=== PATIENT | male | born 1960 | race Caucasian/White ===

== ENCOUNTER 2019-01-23 19:36 | Emergency (ER) | payer OTHER ==
[~2019-01-23] VITALS: Ht 175.3 cm; Wt 88.5 kg
[2019-01-23] MEDS ORDERED: KETOROLAC 30 MG/ML VIAL IVP STA (20:05)
[2019-01-23] MEDS ORDERED: LACTATED RINGERS 1,000 ML IV ONE ×4 (20:05→22:16)
--- OUTSIDE RECORDS SUMMARY | 2019-01-23 20:13 | XMS REPORT | Continuity of Care Document ---
Author Author [facility] Address Unknown Phone Unavailable Allergies There is no data. Medications There is no data. Problems Date Dx Coded Attending Type Code Diagnosis Diagnosed By 10/15/2018 PACO WYATT.Felipa Diverticulitis of large intestine without perforation or abscess without bleeding 10/15/2018 PACO WYATT.Felipa Diverticulitis of large intestine without perforation or abscess without bleeding 10/15/2018 PACO WYATT.Felipa Diverticulitis of large intestine without perforation or abscess without bleeding 10/15/2018 PACO WYATT7.32 Diverticulitis of large intestine without perforation or abscess without bleeding 10/15/2018 PACO WYATT7.Felipa Diverticulitis of large intestine without perforation or abscess without bleeding 10/15/2018 PACO WYATT7.32 Diverticulitis of large intestine without perforation or abscess without bleeding 10/15/2018 PACO WYATT7.32 Diverticulitis of large intestine without perforation or abscess without bleeding 10/16/2018 PACO WYATT7.32 Diverticulitis of large intestine without perforation or abscess without bleeding 10/16/2018 PACO WYATT7.32 Diverticulitis of large intestine without perforation or abscess without bleeding 10/17/2018 PACO WYATT.Felipa Diverticulitis of large intestine without perforation or abscess without bleeding 10/17/2018 PACO WYATT7.Felipa Diverticulitis of large intestine without perforation or abscess without bleeding 10/17/2018 PACO WYATT7.Felipa Diverticulitis of large intestine without perforation or abscess without bleeding 11/04/2018 PACO WYATT 494 Post Op Exam 11/04/2018 PACO WYATT.Felipa Diverticulitis of large intestine without perforation or abscess without bleeding 12/03/2018 NAVEEN GRIFFITH G89.29 Other chronic pain 12/03/2018 NAVEEN GRIFFITH M25.512 Pain in left shoulder 12/03/2018 NAVEEN GRIFFITH G89.29 Other chronic pain 12/03/2018 REBECCANAVEEN CHÁVEZ M25.512 Pain in left shoulder 12/03/2018 NAVEEN GRIFFITH M75.02 Adhesive capsulitis of left shoulder 12/03/2018 G89.29 Other chronic pain 12/03/2018 M25.512 Pain in left shoulder Procedures Code Description Performed By Performed On IVT3 INSERT PERIPHERAL IV 10/15/2018 YTS043 NURSING COMMUNICATION 10/15/[address] SEQUENTIAL COMPRESSION DEVICE 10/15/2018 DDC512 VERIFY INFORMED CONSENT 10/15/[address] TOMMY HOSE 10/15/2018 KMS129 HEIGHT AND WEIGHT 10/15/2018 PHQ333 VITAL SIGNS 10/15/2018 [id number] TISSUE PATHOLOGY OR BIOPSY 10/15/2018 COB069 NOTIFY PHYSICIAN 10/15/2018 TGR281 NURSING COMMUNICATION 10/15/2018 KVI706 MEASURE BLOOD PRESSURE 10/15/2018 WOR282 VITAL SIGNS 10/15/2018 ZZT101 CONTINUOUS PULSE OXIMETRY 10/15/2018 AVI076 MAINTAIN SEQUENTIAL COMPRESSION DEVICE 10/15/2018 ADT30 OR ADMIT TO INPATIENT 10/15/2018 COD2 FULL CODE 10/15/2018 DIET24 DIET 10/15/2018 IVT11 SALINE LOCK IV 10/15/2018 [id number] ADVANCE DIET TOLERATED NURSING: PLACE NEW DIET ORDER WHEN PATIENT IS READY TO ADVANCE DIET 10/15/2018 YYC094 UP WITH ASSISTANCE 10/15/2018 ELE843 NOTIFY PHYSICIAN 10/15/2018 XPJ935 INCENTIVE SPIROMETRY NURSING 10/15/2018 QKN443 TURN COUGH DEEP BREATHE 10/15/2018 VNI849 MEJIA CATHETER - DISCONTINUE 10/15/2018 NMG554 VITAL SIGNS 10/15/[address] SEQUENTIAL COMPRESSION DEVICE 10/15/2018 NRX223 MAINTAIN SEQUENTIAL COMPRESSION DEVICE 10/15/2018 AZK5901 NURSING COMMUNICATION 10/15/2018 LBG761 POST-OP ILEUS PREVENTION 10/15/2018 MZE9039 BASIC METABOLIC PANEL 10/15/2018 XAD5707 COMPLETE BLOOD COUNT 10/15/2018 MUI2020 MAGNESIUM 10/15/2018 JZN8882 PHOSPHORUS 10/15/2018 FPD982 NURSING COMMUNICATION 10/15/2018 NUR9 AMBULATE IN TIERNEY 10/16/2018 [id number] BASIC METABOLIC PANEL 10/16/2018 LFP7059 COMPLETE BLOOD COUNT 10/16/2018 NPI8161 MAGNESIUM 10/16/2018 CXI5626 PHOSPHORUS 10/16/2018 DIET24 DIET 10/17/2018 DIET24 DIET 10/17/2018 RBN903 WEIGHT RESTRICTIONS 10/17/2018 VQP219 WOUND CARE ROUTINE (SPECIFY ) 10/17/2018 BOF525 PATIENT MAY SHOWER 10/17/2018 LKZ313 DISCHARGE FOLLOW UP 10/17/2018 ADT8 DISCHARGE PATIENT 10/17/2018 [id number] XR SHOULDER MIN 2 VIEWS LEFT 12/03/2018 REF87 AMB REFERRAL TO PHYSICAL THERAPY 12/03/2018 ZTI585 LARGE JOINT INJECTION/ ARTHROCENTESIS 12/03/2018 Results Test Result Range COMPLETE BLOOD COUNT - 10/16/18 03:45 WBC 11.58 4.00-11.00 Hematocrit 40 40-50 Hemoglobin 13.7 13.0-17.0 MCH 31 27-34 MCHC 34 32-36 MCV 90 80-99 MPV 9.7 9.4-12.3 Platelet Count 258 140-400 RBC 4.46 4.31-5.84 RDW 14.2 9.0-14.5 BASIC METABOLIC PANEL - 10/16/18 03:45 Blood Urea Nitrogen 12 7-26 Chloride 104 96-112 Carbon Dioxide 28 20-32 Creatinine 1.0 0.6-1.3 Glucose 108 70-100 Potassium 4.2 3.5-5.3 Sodium 139 133-147 Calcium 8.6 8.4-10.5 Anion Gap 7 TX 5-17 GFR MALE AA 93 TX 60-200 GFR MALE NON-AA 77 TX 60-200 PHOSPHORUS - 10/16/18 03:45 Phosphorus 3.9 2.5-4.5 MAGNESIUM - 10/16/18 03:45 Magnesium 2.1 1.4-2.7 Encounters ACCT No. Visit Date/Time Discharge Status Pt. Type Provider Facility Loc./Unit Complaint [id number] 12/03/2018 15:08:11 12/03/2018 23:59:59 CLS Outpatient BS XR Pain in left shoulder [id number] 12/03/2018 14:54:09 12/03/2018 23:59:59 CLS Outpatient NAVEEN GRIFFITH BLSPG RH ORT Pain [id number] 11/04/2018 14:16:30 11/04/2018 23:59:59 CLS Outpatient PACO WYATT BS GS Post Op Exam [id number] 10/15/2018 10:05:51 10/17/2018 13:22:33 DIS Inpatient PACO WYATT [facility] 5S1 diverticulitis [id number] 10/15/2018 10:49:15 Document Registration
[2019-01-23] MEDS ORDERED: ONDANSETRON 4 MG/2 ML (SDV) Z0FRAN IVP ONE ×2 (20:15→21:30)
[2019-01-23 20:17] LABS: BASOPHILS % (AUTO) 0 % (0-10); EOSINOPHILS # (AUTO) 0.1 10^3/uL (0.0-0.3); EOSINOPHILS % (AUTO) 1 % (0-10); HEMATOCRIT 44 % (40-54); HEMOGLOBIN 14.8 G/DL (13.3-17.7); LYMPHOCYTES % (AUTO) 9 % (12-44); MEAN CORPUSCULAR HEMOGLOBIN 31 PG (25-34); MEAN CORPUSCULAR HGB CONC 34 G/DL (32-36); MEAN CORPUSCULAR VOLUME 91 FL (80-99); MEAN PLATELET VOLUME 9.5 FL (7.4-10.4); MONOCYTES # (AUTO) 0.6 X 10^3 (0.0-1.0); MONOCYTES % (AUTO) 6 % (0-12); NEUTROPHILS # (AUTO) 9.4 X 10^3 (1.8-7.8); NEUTROPHILS % (AUTO) 85 % (42-75); PLATELET COUNT 244 10^3/uL (130-400); RED CELL DISTRIBUTION WIDTH 14.4 % (10.0-14.5)
[2019-01-23 20:35] LABS: ALANINE AMINOTRANSFERASE 19 U/L (0-55); ALBUMIN 4.2 GM/DL (3.2-4.5); ALKALINE PHOSPHATASE 64 U/L (40-136); AMYLASE 88 U/L (25-125); BUN/CREATININE RATIO 12; CALCIUM 9.3 MG/DL (8.5-10.1); CARBON DIOXIDE 20 MMOL/L (21-32); CHLORIDE 109 MMOL/L (98-107); GFR ESTIMATED > 60; GLUCOSE 106 MG/DL (70-105); LIPASE 15 U/L (8-78); POTASSIUM 3.7 MMOL/L (3.6-5.0); SODIUM 142 MMOL/L (135-145); TOTAL PROTEIN 7.1 GM/DL (6.4-8.2)
--- NOTE | 2019-01-23 20:38 | Diagnostic Imaging Report ---
INDICATION: Right flank pain The upright chest shows no abnormality. Supine and upright views of the abdomen shows normal bowel gas pattern. There is no free intraperitoneal air. No mass or calculus is evident. There is no bony abnormality. IMPRESSION: No abnormality is seen. Dictated by: Dictated on workstation # [id number]
--- NOTE | 2019-01-23 20:46 | Diagnostic Imaging Report ---
PROCEDURE: CT urinary tract, rule out kidney stone. TECHNIQUE: Multiple contiguous axial images were obtained through the abdomen and pelvis without the use of intravenous contrast. Auto Exposure Controls were utilized during the CT exam to meet ALARA standards for radiation dose reduction. INDICATION: Right flank pain FINDINGS: The liver, gallbladder and bile ducts are normal. The spleen, pancreas and adrenals are normal. There is a 6.3 cm cyst in the superior pole of the right kidney. There is mild pelvocaliectasis present on the right. Right ureter is dilated down into the pelvis where I believe there are punctate calcifications seen in the distal ureter just proximal to the ureterovesical junction. This is only faintly visualized. The left kidney and ureter are normal. No intrinsic abnormality of the bladder is seen. There is no acute bowel abnormality. There is no free intraperitoneal air or fluid. IMPRESSION: There is mild pelvocaliectasis of the right kidney and mild prominence of the right ureter down into the pelvis where there is probably a punctate calcification present. No other acute abnormality is evident. Dictated by: Dictated on workstation # [id number]
[2019-01-23 20:59] LABS: BILIRUBIN,URINE NEGATIVE (NEGATIVE); CLARITY,URINE CLEAR; COLOR,URINE YELLOW; GLUCOSE, URINE (UA) NEGATIVE (NEGATIVE); KETONES,URINE NEGATIVE (NEGATIVE); LEUKOCYTE ESTERASE ,URINE NEGATIVE (NEGATIVE); NITRITE,URINE NEGATIVE (NEGATIVE); PH,URINE 5 (5-9); PROTEIN,URINE 1+ (NEGATIVE); UROBILINOGEN,URINE NORMAL (NORMAL)
[2019-01-23 21:11] LABS: BACTERIA,URINE TRACE /HPF; HYALINE CASTS, URINE RARE /LPF; SQUAMOUS EPITHELIAL CELL,UR RARE /HPF
[2019-01-23] MEDS ORDERED: morphine INJ 10 MG/ML 1ML (SYR OR VIAL) IVP STA (21:17)
[2019-01-23] MEDS ORDERED: ALFUZOSIN HCL 10 MG TAB (UROXATRAL) PO SCH (21:30)
--- NOTE | 2019-01-23 21:40 | NUR ---
THIS RN IN TO ADMINISTER MEDICATIONS FOR PAIN ET NAUSEA. PT REPORTED HE WANTED TO WAIT AT THIS TIME HIS PAIN WAS "TOLERABLE". FAMILY AT BEDSIDE.
--- NOTE | 2019-01-23 21:42 | ED Abdominal Pain ---
General Chief Complaint: Abdominal/GI Problems Stated Complaint: ABD PAIN,BACK PAIN,VOMITING Nursing Triage Note: PT TO ED 9 PER AMB W/ SISTER FOR C/O RT FLANK PAIN RADIATING TO RLQ. PT REPORTS ONSET THIS AM. ALSO C/O N/V W/ ONSET. PT DENIES ANY MEDICAL HX TO THIS RN AT THIS TIME. Sepsis Screen: No Definite Risk Source of Information: Patient History of Present Illness Date Seen by Provider: Jan 23, 2019 Time Seen by Provider: 20:00 Initial Comments PT ARRIVES VIA POV PT C/O RLQ AND RIGHT FLANK PAIN SINCE THIS AM PAIN COMES AND GOES, AND IS NOT BAD NOW, BUT IS SEVERE AT TIMES C/O NAUSEA AND VOMITING WITH PAIN NOTHING WORSENS OR IMPROVES PAIN NO PROBLEMS URINATING NO DIARRHEA OR CONSTIPATION NO FEVER NO HISTORY OF SIMILAR HAS NOT TAKEN ANYTHING FOR PAIN AT ANY TIME PT HAD COLON RESECTION > 1 MONTH AGO FOR DIVERTICULITIS PT IS HERE VISITING FROM [facility] THIS --SON IS PLAYING BASEBALL HERE THIS . PCP IN [facility] Allergies and Home Medications Allergies Coded Allergies: No Known Drug Allergies (Unverified , 01/23/19) Home Medications Ciprofloxacin HCl 500 Mg Tablet, 500 MG PO BID Prescribed by: DEEPTHI RUBY on 01/23/192149 Hydrocodone/Ibuprofen 1 Each Tablet, 1-2 EACH PO Q4H Prescribed by: DEEPTHI RUBY on 01/23/192149 Ondansetron 4 Mg Tab.rapdis, 4 MG PO Q4H Prescribed by: DEEPTHI RUBY on 01/23/192149 Tamsulosin HCl 0.4 Mg Cap, 0.4 MG PO DAILY Prescribed by: DEEPTHI RUBY on 01/23/192149 Patient Home Medication List Home Medication List Reviewed: Yes Review of Systems Review of Systems Constitutional: no symptoms reported; No chills, No diaphoresis, No dizziness, No fever Respiratory: No Symptoms Reported Cardiovascular: No Symptoms Reported Gastrointestinal: See HPI, Abdominal Pain, Nausea, Vomiting Genitourinary: Denies Burning, Denies Frequency; Flank Pain; Denies Hematuria, Denies Pain, Denies Urgency Musculoskeletal: see HPI, back pain Skin: no symptoms reported Psychiatric/Neurological: No Symptoms Reported Endocrine: No Symptoms Reported Hematologic/Lymphatic: No Symptoms Reported Past Samwsmw-Sijnby-Qefdda Hx Patient Social History Alcohol Use: Denies Use Recreational Drug Use: No Smoking Status: Never a Smoker Recent Foreign Travel: No Contact w/Someone Who Travel: No Recent Infectious Disease Expo: No Recent Hopitalizations: No Physical Abuse: No Sexual Abuse: No Mistreated: No Fear: No Past Medical History Surgeries: Yes (COLON RESECTION 2019 FOR DIVERTICULITIS) Abdominal, Bowel Surgery Respiratory: No Cardiac: Yes (NOT TAKING MEDICATIONS FOR HTN) Hypertension Neurological: No Genitourinary: No Gastrointestinal: Yes (COLON RESECTION 2019 FOR DIVERTICULITIS) Diverticulosis Musculoskeletal: No Endocrine: No HEENT: No Cancer: No Psychosocial: No Integumentary: No Blood Disorders: No Physical Exam Vital Signs Vital Signs - First Documented 01/23/19 19:59 Temp 97.2 Pulse 79 Resp 18 B/P (MAP) 135/87 (103) Pulse Ox 95 O2 Delivery Room Air Capillary Refill : Less Than 3 Seconds Height/Weight/BMI Height: 5'9.00" Weight: 195lbs. oz. 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, no motor/sensory deficits, alert, normal mood/affect, oriented x 3 Skin: normal color, warm/dry; No rash Progress/Results/Core Measures Results/Orders Lab Results Laboratory Tests Test 01/23/19 20:10 01/23/19 20:53 Range/Units White Blood Count 11.0 4.3-11.0 10^3/uL Red Blood Count 4.82 4.35-5.85 10^6/uL Hemoglobin 14.8 13.3-17.7 G/DL Hematocrit 44 40-54 % Mean Corpuscular Volume 91 80-99 FL Mean Corpuscular Hemoglobin 31 25-34 PG Mean Corpuscular Hemoglobin Concent 34 32-36 G/DL Red Cell Distribution Width 14.4 10.0-14.5 % Platelet Count 244 130-400 10^3/uL Mean Platelet Volume 9.5 7.4-10.4 FL Neutrophils (%) (Auto) 85 H 42-75 % Lymphocytes (%) (Auto) 9 L 12-44 % Monocytes (%) (Auto) 6 0-12 % Eosinophils (%) (Auto) 1 0-10 % Basophils (%) (Auto) 0 0-10 % Neutrophils # (Auto) 9.4 H 1.8-7.8 X 10^3 Lymphocytes # (Auto) 1.0 1.0-4.0 X 10^3 Monocytes # (Auto) 0.6 0.0-1.0 X 10^3 Eosinophils # (Auto) 0.1 0.0-0.3 10^3/uL Basophils # (Auto) 0.0 0.0-0.1 10^3/uL Sodium Level 142 135-145 MMOL/L Potassium Level 3.7 3.6-5.0 MMOL/L Chloride Level 109 H 98-107 MMOL/L Carbon Dioxide Level 20 L 21-32 MMOL/L Anion Gap 13 5-14 MMOL/L Blood Urea Nitrogen 14 7-18 MG/DL Creatinine 1.20 0.60-1.30 MG/DL Estimat Glomerular Filtration Rate > 60 BUN/Creatinine Ratio 12 Glucose Level 106 H 70-105 MG/DL Calcium Level 9.3 8.5-10.1 MG/DL Corrected Calcium 9.1 8.5-10.1 MG/DL Total Bilirubin 1.0 0.1-1.0 MG/DL Aspartate Amino Transf (AST/SGOT) 17 5-34 U/L Alanine Aminotransferase (ALT/SGPT) 19 0-55 U/L Alkaline Phosphatase 64 40-136 U/L Total Protein 7.1 6.4-8.2 GM/DL Albumin 4.2 3.2-4.5 GM/DL Amylase Level 88 25-125 U/L Lipase 15 8-78 U/L Urine Color YELLOW Urine Clarity CLEAR Urine pH 5 5-9 Urine Specific Dora 1.020 1.016-1.022 Urine Protein 1+ H NEGATIVE Urine Glucose (UA) NEGATIVE NEGATIVE Urine Ketones NEGATIVE NEGATIVE Urine Nitrite NEGATIVE NEGATIVE Urine Bilirubin NEGATIVE NEGATIVE Urine Urobilinogen NORMAL NORMAL MG/DL Urine Leukocyte Esterase NEGATIVE NEGATIVE Urine RBC (Auto) 5+ H NEGATIVE Urine RBC 10-25 H /HPF Urine WBC NONE /HPF Urine Squamous Epithelial Cells RARE /HPF Urine Crystals NONE /LPF Urine Bacteria TRACE /HPF Urine Casts PRESENT /LPF Urine Hyaline Casts RARE /LPF Urine Mucus MODERATE H /LPF Urine Culture Indicated NO My Orders Orders - DEEPTHI RUBY DO Ct Abd/Pelvis Wo(Kidney Stone) (01/23/19 20:02) Amylase (01/23/19 20:02) Cbc With Automated Diff (01/23/19 20:02) Comprehensive Metabolic Panel (01/23/19 20:02) Lipase (01/23/19 20:02) Urinalysis (01/23/19 20:02) Acute Abd Series (01/23/19 20:02) Saline Lock/Iv-Start (01/23/19 20:05) Lactated Ringers (Lr 1000 Ml Iv Solution (01/23/19 20:05) Ondansetron Injection (Zofran Injectio (01/23/19 20:15) Ketorolac Injection (Toradol Injection) (01/23/19 20:05) Ondansetron Injection (Zofran Injectio (01/23/19 21:30) Morphine Injection (Morphine Injection (01/23/19 21:17) Alfuzosin (Not Stocked) (Uroxatral (Not (01/23/19 21:30) Saline Lock/Iv-Start (01/23/19 21:50) Lactated Ringers (Lr 1000 Ml Iv Solution (01/23/19 21:50) Lactated Ringers (Lr 1000 Ml Iv Solution (01/23/19 22:13) Saline Lock/Iv-Start (01/23/19 22:16) Lactated Ringers (Lr 1000 Ml Iv Solution (01/23/19 22:16) Rx-Hydrocodone/Apap 5-325 Mg (Rx-Vicodin (01/23/19 22:30) Rx-Ondansetron Po (Rx-Zofran Po) (01/23/19 22:17) Rx-Levofloxacin (Rx-Levaquin) (01/23/19 22:17) Medications Given in ED Current Medications Medications Dose Ordered Sig/Luis Route Start Time Stop Time Status Last Admin Dose Admin Lactated Ringer's 1,000 ml @ 0 mls/hr Q0M ONCE IV 01/23/19 20:05 01/23/19 20:08 DC 01/23/19 20:16 1,000 MLS/HR Lactated Ringer's 1,000 ml @ 0 mls/hr Q0M ONCE IV 01/23/19 21:50 01/23/19 22:16 DC 01/23/19 22:17 1,000 MLS/HR Ondansetron HCl 4 mg ONCE ONCE IVP 01/23/19 20:15 01/23/19 20:16 DC 01/23/19 20:16 4 MG Vital Signs/I&O 01/23/19 19:59 Temp 97.2 Pulse 79 Resp 18 B/P (MAP) 135/87 (103) Pulse Ox 95 O2 Delivery Room Air Blood Pressure Mean: 103 Progress Progress Note : Progress Note PAIN AND NAUSEA IMPROVED WITH MEDICATIONS Diagnostic Imaging Comments KUB--NO ACUTE PROCESS CT ABDOMEN/PELVIS--MILD PROMINENCE OF RIGHT URETER DOWN TO PELVIS WITH PROBABLE PUNCTATE CALCIFICATION IN DISTAL URETER. MILD PELVOCALIECTASIS OF RIGHT KIDNEY. 6.3 CM CYST ON SUPERIOR POLE OF RIGHT KIDNEY PER RADIOLOGIST REPORTS AT 2109 Reviewed: Reviewed by Me Departure Impression Primary Impression: Right distal ureteral calculus Disposition: HOME, SELF-CARE Condition: Improved Departure-Patient Inst. Referrals: NO,LOCAL PHYSICIAN (PCP) Primary Care Physician Patient Instructions: How to Strain Your Urine, Kidney Stones (DC) Add. Discharge Instructions: LOTS OF CLEAR LIQUIDS FOLLOW UP WITH UROLOGIST OF CHOICE ON FRIDAY FOR FURTHER CARE--CALL YOUR DR ON FRIDAY FOR REFERRAL TO UROLOGIST RETURN TO ER IF WORSE All discharge instructions reviewed with patient and/or family. Voiced understanding. Scripts Ondansetron (Ondansetron Odt) 4 Mg Tab.rapdis 4 MG PO Q4H for Nausea/Vomiting, #10 TAB Prov: FLORI,DEEPTHI K DO 01/23/19 Hydrocodone/Ibuprofen (Hydrocodone-Ibuprofen 7.5-200) 1 Each Tablet 1-2 EACH PO Q4H for Pain MDD 6, #20 TAB Prov: FLORI,DEEPTHI K DO 01/23/19 Tamsulosin HCl (Flomax) 0.4 Mg Cap 0.4 MG PO DAILY, #10 CAP Prov: FLORI,DEEPTHI K DO 01/23/19 Ciprofloxacin HCl (Cipro) 500 Mg Tablet 500 MG PO BID, #20 TAB Prov: FLORI,DEEPTHI K DO 01/23/19 DEEPTHI RUBY DO Jan 23, 2019 21:42
[2019-01-23] MEDS ORDERED: HYDR-87 PO (21:50)
[2019-01-23] MEDS ORDERED: TAMS0.4C98 PO (21:50)
[2019-01-23] MEDS ORDERED: CIPR-225 PO (21:50)
[2019-01-23] MEDS ORDERED: ONDA4TAB11 PO (21:50)
[2019-01-23] MEDS ORDERED: RX-LEVOFLOXACIN 500 MG (LEVAQUIN) TAB #1 PPK PO STA (22:17)
[2019-01-23] MEDS ORDERED: RX-ONDANSETRON 4 MG ODT (ZOFRAN) PPK #4 PO STA (22:17)
[2019-01-23] MEDS ORDERED: RX-HYDROCODONE/APAP 5/325 MG #4 TAB PK PO PRN (22:30)
[2019-01-23 23:39] VITALS: BP 133/88
== END 2019-01-23 23:50 | disposition home or self-care (01) ==
LOC: ER 19:39
DX: N20.2 Calculus of kidney with calculus of ureter (principal); I10 Essential (primary) hypertension; Z90.49 Acquired absence of other specified parts of digestive tract; Z87.19 Personal history of other diseases of the digestive system; Z98.890 Other specified postprocedural states
CPT/HCPCS: 36415; 74022; 74176; 80053; 81000; 82150; 83690; 85025; 96361; 96374; 96375